=== PATIENT | male | born 1960 | race Caucasian/White ===

== ENCOUNTER 2018-09-20 11:06 | Emergency (ER) | payer OTHER ==
[~2018-09-20] VITALS: Ht 167.6 cm; Wt 84.9 kg
[2018-09-20 11:13] VITALS: BP 131/84
--- NOTE | 2018-09-20 11:15 | NUR ---
PT AMBULATES TO BED 11, REPORT GIVEN TO ANT NUNEZ
--- NOTE | 2018-09-20 11:20 | NUR ---
C/O RT ANKLE PAIN X 1 WK WORSE ON AMBULATION; DENIES INJURY. DENIES N/V/D; SKIN IS PINK/WARM/DRY; AAOX4 WITH EVEN AND STEADY GAIT; LUNGS CLEAR BL; HR EVEN AND REGULAR; PT DENIES ANY FEVER, CP, SOB, OR COUGH AT THIS TIME; PATIENT STATES PAIN OF 0/10 AT THIS TIME; VSS; PATIENT POSITIONED FOR COMFORT; HOB ELEVATED; BEDRAILS UP X2; BED DOWN. ER MD MADE AWARE OF PT STATUS.
--- NOTE | 2018-09-20 11:38 | NUR ---
Kay judge in [facility] - 09/20/18 at [address] ACOSTA AT [facility].
--- NOTE | 2018-09-20 11:40 | NUR ---
Patient being evaluated by physician at bedside.
[2018-09-20] MEDS ORDERED: IBUPROFEN 400 MG TAB PO ONE (11:45)
--- NOTE | 2018-09-20 11:49 | NUR ---
XRAY AT BEDSIDE
[2018-09-20 12:58] VITALS: BP 131/84
== END 2018-09-20 12:55 | disposition home or self-care (01) ==
LOC: MED 11:06
DX: M70.871 Other soft tissue disorders related to use, overuse and pressure, right ankle and foot (principal); Y93.01 Activity, walking, marching and hiking
CPT/HCPCS: 73610; 73630; 99284; Q0092